=== PATIENT | female | born 1945 | race Caucasian/White ===

== ENCOUNTER 2016-10-11 17:25 | Emergency (ER) | payer OTHER ==
--- NOTE | 2016-10-11 17:48 | EDPHY ---
H & P Time Seen by Provider: 10/11/16 17:37 HPI/ROS: CHIEF COMPLAINT: Laceration left plantar foot HISTORY OF PRESENT ILLNESS: 71-year-old immunocompetent female with out-of- date tetanus was barefoot in her house when she stepped on a sharp plastic object that did not break. Sustained laceration plantar aspect of her foot. Not through and through. No paresthesia. No sensory motor deficit. Occurred shortly prior to arrival. PHYSICAL EXAM (Prior to examination, patient consented to physical exam, hands were washed and my usual and customary physical exam procedures followed) 1) GENERAL: Well-developed, well-nourished, alert and oriented. Appears to be in no acute distress. 2) HEAD: Normocephalic 3) HEENT: sclera anicteric 4) LUNGS: Breathing comfortably. 5) SKIN: left plantar midfoot 1.5 cm laceration superficial 6) MUSCULOSKELETAL: no signs of infection, no foreign body palpated or visualized. Soft compartments . DP PT pulses present and brisk. No lymphangitic streaking 7) NEUROLOGIC: Full sensation Smoking Status: Former smoker Constitutional: Initial Vital Signs Temperature (C) 36.8 C 10/11/16 17:31 Heart Rate 75 10/11/16 17:31 Respiratory Rate 18 10/11/16 17:31 Blood Pressure 135/83 H 10/11/16 17:31 O2 Sat (%) 98 10/11/16 17:31 O2 Delivery Mode Room Air Allergies/Adverse Reactions: Sulfa (Sulfonamide Antibiotics) [Sulfa(Sulfonamide Antibiotics)] Allergy (Mild, Unverified 10/11/16 17:35) Other-Enter Comments Home Medications: Medication Instructions Recorded Levothyroxine [Synthroid 100 mcg 100 mcg PO DAILY06 10/29/11 (RX)] QUETIAPINE FUMARATE [Seroquel] 100 mg PO HS 10/29/11 lamoTRIgine [LamICTAL 100 MG (RX)] 10/29/11 Cephalexin [Keflex] 500 mg PO QID 5 Days 10/11/16 MDM/Departure - MDM Procedures: Procedure: Laceration repair. I explained the indications, risks and benefits for both laceration repair and anesthetic administration. Verbal consent was obtained from the patient . The laceration on the plantar aspect of foot was anesthetized using 0.5% bupivicaine with epinephrine . After anesthetic administered the patient was observed for a period of time and had no apparent adverse effects. The wound was cleaned, prepped, draped in normal sterile fashion and explored to its base. No foreign body seen, no foreign bodies palpated. There were no deep structures involved. No tendon injury was identified. The wound was repaired with 3 simple interrupted 3 0 Prolene suture. The wound repair was simple. The procedure was performed by myself. Patient has been informed that scarring will occur, although efforts have been made to minimize this. Procedure: Splint A postop shoe splint was applied by ER crown and bridge technician. After application of the splint I returned and re-examined the patient. The splint was adequately immobilizing the joint and distal to the splint the patient's circulation and sensation were intact. Patient shows no signs of compartment syndrome. Was given orthopedic precautions. - Depart Disposition: Home, Routine, Self-Care Clinical Impression: Laceration of left foot Qualifiers: Encounter type: initial encounter Qualified Code(s): S91.312A - Laceration without foreign body, left foot, initial encounter Condition: Good Instructions: Laceration (ED), Care For Your Stitches (ED) Additional Instructions: Return to the ER if you develop redness, swelling, discharge, warmth to the wound, red streaks going up your leg, or any other symptoms that concern you. Prescriptions: Cephalexin [Keflex] 500 mg PO QID 5 Days Referrals: Return, to the ER in 14 days for suture removal [Other] - 10/25/16
[2016-10-11] MEDS ORDERED: CEPHALEXIN 500 MG CAP PO ONE (18:08)
[2016-10-11] MEDS ORDERED: TDAP ADULT 0.5 ML INJ (BOOSTRIX) IM ONE (18:08)
[2016-10-11 18:29] VITALS: BP 120/75; PULSE 59; RESP 16; TEMP 97.7; O2SAT 95
== END 2016-10-11 18:29 | disposition home or self-care (01) ==
PROC: 0HQNXZZ Repair Left Foot Skin, External Approach (ICD-10-PCS; principal; 2016-10-11)
DX: S91.312A Laceration without foreign body, left foot, initial encounter (principal); Z23 Encounter for immunization; Z87.891 Personal history of nicotine dependence; W22.8XXA Striking against or struck by other objects, initial encounter; Y92.009 Unspecified place in unspecified non-institutional (private) residence as the place of occurrence of the external cause
CPT/HCPCS: 12001; 90471; 90715; 99283; L3260

== ENCOUNTER → 2017-01-28 | Outpatient (CLI) | payer OTHER | LOC: FIMAGING 13:40 | PROVIDERS: ATTEND Internal Medicine | DX: Z09 Encounter for follow-up examination after completed treatment for conditions other than malignant neoplasm (principal); N95.8 Other specified menopausal and perimenopausal disorders; M81.0 Age-related osteoporosis without current pathological fracture ==

== ENCOUNTER → 2017-03-12 | Outpatient (CLI) | payer OTHER | LOC: GIMAGING 12:16 | PROVIDERS: ATTEND Registered Nurse | DX: M19.071 Primary osteoarthritis, right ankle and foot (principal) | CPT/HCPCS: 73630-PO ==